=== PATIENT | female | born 1995 | race Caucasian/White ===

== ENCOUNTER 2017-07-26 18:37 | Emergency (ER) | payer MEDICARE, OTHER ==
[~2017-07-26] VITALS: Ht 152.4 cm; Wt 81.7 kg
[~2017-07-26 18:37] MED LIST: BENTYL 20 MG TA20 M1 PO; LORATADINE; NOHOMEMEDICATIONS; ONDANSETRON HCL4 M2 PO; PROMETHAZINE-C120 ML PO; SINGULAIR; XOPENEX HFA15 GM; ZOFRAN ODT4 MG PO; ZOFRAN4 MG PO
[2017-07-26] MEDS ORDERED: SYNTHROID100 MCG PO (19:07)
[2017-07-26 19:48] LABS: CALCIUM 9.4 mg/dL (8.5-10.1); CREATININE 0.8 mg/dL (0.6-1.3); POTASSIUM 3.7 mmol/L (3.5-5.1)
[2017-07-26 19:53] LABS: ALBUMIN 3.6 g/dL (3.4-5.0); TOTAL BILIRUBIN 0.2 mg/dL (<0.1-1.0); TOTAL PROTEIN 8.5 g/dL (6.4-8.2)
[2017-07-26 20:07] LABS: URINE BILIRUBIN NEGATIVE (Negative); URINE BLOOD NEGATIVE (Negative); URINE CLARITY CLEAR; URINE COLOR YELLOW; URINE GLUCOSE-RANDOM NEGATIVE (Negative); URINE KETONES NEGATIVE (Negative); URINE LEUKOCYTES NEGATIVE (Negative); URINE NITRITE NEGATIVE (Negative); URINE PROTEIN NEGATIVE (Negative); URINE SPECIFIC GRAVITY <= 1.005 (1.005-1.030); URINE UROBILINOGEN 0.2 E.U./dl (0.2-1.0)
[2017-07-26 20:33] LABS: ABSOLUTE EOSINOPHILS 0.1 thou/uL (0.0-0.7); ABSOLUTE LYMPHOCYTES 2.3 thou/uL (0.8-5.3); ABSOLUTE MONOCYTES 0.7 thou/uL (0.0-1.2); ABSOLUTE NEUTROPHILS 10.8 thou/uL (1.6-8.1); BASOPHILS 0.2 %; EOSINOPHILS 0.4 %; HEMATOCRIT 37.7 % (37.0-47.0); HEMOGLOBIN 11.9 gm/dL (12.0-15.0); LYMPHOCYTES 16.5 %; MCHC 31.6 g/dL (28.0-37.0); MCV 75.9 fL (80.0-100.0); MONOCYTES 5.2 %; MPV 8.9 fl. (7.2-11.1); NUCLEATED RBCS 0 /100WBC; PLATELET COUNT* 414 thou/uL (150-400); POLYS 77.7 %; RBC 4.97 mil/uL (4.20-5.00); WBC 13.9 thou/uL (4.0-11.0)
[2017-07-26] MEDS ORDERED: FLAGYL500 MG PO (22:17)
[2017-07-26] MEDS ORDERED: TRAMADOL 50 MG50 MG PO (22:17)
[2017-07-26 22:41] VITALS: BP 132/92
== END 2017-07-26 22:43 | disposition still patient (30) ==
LOC: M.ERS 18:37
PROVIDERS: Physician Assistant
DX: R19.7 Diarrhea, unspecified (principal); R10.84 Generalized abdominal pain; J45.909 Unspecified asthma, uncomplicated; H91.3 Deaf nonspeaking, not elsewhere classified